=== PATIENT | male | born 1955 | race Caucasian/White ===

== ENCOUNTER → 2024-05-30 07:33 | Outpatient (REF) | payer MEDICARE, BC, SELFPAY | LOC: EMG 07:33 | PROVIDERS: ATTENDING PHYSICIAN Family Medicine | DX: R20.0 Anesthesia of skin (principal); G56.90 Unspecified mononeuropathy of unspecified upper limb; R20.2 Paresthesia of skin | CPT/HCPCS: 95886; 95911 ==

== ENCOUNTER → 2025-01-25 10:24 | Outpatient (REF) | payer MEDICARE, BC, SELFPAY | LOC: RAD 10:24 | PROVIDERS: ATTENDING PHYSICIAN Nurse Practitioner Family; FAMILY PHYSICIAN Family Medicine | DX: M79.671 Pain in right foot (principal) | CPT/HCPCS: 73630 ==

== ENCOUNTER → 2025-02-06 08:06 | Outpatient (REF) | payer MEDICARE, BC, SELFPAY | LOC: DHSLP 08:06 | PROVIDERS: ATTENDING PHYSICIAN Nurse Practitioner Family | DX: G47.33 Obstructive sleep apnea (adult) (pediatric) (principal) | CPT/HCPCS: 95810 ==

== ENCOUNTER → 2025-09-05 06:38 | Outpatient (REF) | payer MEDICARE, BC, SELFPAY | LOC: MRI 06:38 | PROVIDERS: ATTENDING PHYSICIAN Family Medicine | DX: R20.0 Anesthesia of skin (principal) | CPT/HCPCS: 72148 ==